=== PATIENT | male | born 1950 | race Caucasian/White ===

== ENCOUNTER 2018-01-29 11:05 | Emergency (ER) | END 2018-01-29 12:22 | disposition home or self-care (01) ==

== ENCOUNTER 2018-05-13 10:01 | Emergency (ER) | payer OTHER, MEDICAID ==
[~2018-05-13] VITALS: Ht 170.2 cm; Wt 109.7 kg
[~2018-05-13 10:01] MED LIST: CYCL10TA7 PO; DOCU-144 PO; HYDR-3498 PO
[2018-05-13 10:12] VITALS: BP 158/88; PULSE 78; RESP 18; Ht 170.2 cm; Wt 109.7 kg
[2018-05-13] MEDS ORDERED: ACETAMINOPHEN 325 MG TAB PO ONE (11:00)
[2018-05-13] MEDS ORDERED: ACET500C5 PO (12:46)
[2018-05-13] MEDS ORDERED: TRAM50TA2 PO (12:46)
--- NOTE | 2018-05-13 12:49 | ERD ---
ER Documentation Chief Complaint Chief Complaint RIGHT RIB AND SHOULDE PAIN X/P FALL 2WKS AGO HPI 68-year-old male tripped and fell 2 weeks ago. His right shoulder pain, low back pain, right knee pain. Is amatory. He had a facial contusion and has a bruise below his right eye but denies loss of consciousness, vomiting, visual changes, neck pain. ROS All systems reviewed and are negative except as per history of present illness. Medications Home Meds Active Scripts Tramadol HCl (Tramadol HCl) 50 Mg Tablet, 50 MG PO Q4 PRN for PAIN, #12 TAB Prov:SHAUNNA DEVI MD 05/13/18 Acetaminophen* (Tylophen*) 500 Mg Capsule, 1 CAP PO Q6H PRN for PAIN AND OR ELEVATED TEMP, #20 CAP Prov:SHAUNNA DEVI MD 05/13/18 Docusate Sodium* (Colace*) 100 Mg Capsule, 100 MG PO TID, #30 Prov:KALIA GASPAR DO 12/10/14 Cyclobenzaprine Hcl* (Cyclobenzaprine Hcl*) 10 Mg Tablet, 10 MG PO TID, #15 TAB Prov:KAILA GASPAR DO 12/10/14 Hydrocodone Bit-Acetaminophen* ([place]*) 5-325 Mg Tab, 1 TAB PO Q6 PRN for PAIN, #14 TAB Prov:KAILA GASPAR DO 12/10/14 Allergies Allergies: Coded Allergies: No Known Allergy (Verified Allergy, Unknown, 07/14/09) PMhx/Soc History of Surgery: No Anesthesia Reaction: No Hx Neurological Disorder: No Hx Respiratory Disorders: No Hx Cardiac Disorders: No Hx Psychiatric Problems: No Hx Miscellaneous Medical Probl: Yes (dm) Hx Alcohol Use: Yes Hx Substance Use: No Hx Tobacco Use: No FmHx Family History: No diabetes, No coronary disease, No other Physical Exam Vitals Vital Signs Date Temp Pulse Resp B/P (MAP) Pulse Ox O2 O2 Flow FiO2 Time Delivery Rate 05/13/18 98.0 78 18 158/88 96 10:12 (111) Physical Exam Const: No acute distress Head: Atraumatic Eyes: Normal Conjunctiva. Eyes Becki and extraocular movements intact. ENT: Normal External Ears, Nose and Mouth. Small bruise below the right eye without visual deformities, swelling, erythema. No deformities. Neck: Full range of motion. No meningismus. Resp: Clear to auscultation bilaterally Cardio: Regular rate and rhythm, no murmurs Abd: Soft, non tender, non distended. Normal bowel sounds Skin: No petechiae or rashes Back: No midline or flank tenderness Ext: No cyanosis, or edema. Tenderness in the right shoulder capsule without deformities, restricted range of motion weakness. Tenderness of the paraspinous lumbar area without midline tenderness or deformities. Mild tenderness over the right anterolateral knee joint without deformities, restricted range of motion weakness. No calf swelling or Homans sign. Neur: Awake and alert. Normal gait. No appreciable focal neurologic deficits. Psych: Normal Mood and Affect Results 24 hrs Current Medications Medications Dose Sig/Hao Start Time Status Last (Trade) Ordered Route PRN Stop Time Admin Dose Reason Admin 650 mg ONCE ONCE 05/13/18 DC 05/13/18 Acetaminophen PO 11:00 10:56 (Tylenol 05/13/18 11:01 Tab) Procedures/MDM X-ray right shoulder 3V Interpreted by me: Bones: No fracture Joints: No dislocation Foreign body: None impression-degenerative changes right AC joint. X-ray right knee 3V Interpreted by me: Bones: No fracture Joints: No dislocation Foreign body: None. Impression-degenerative changes of the suprapatellar area without fracture or dislocation. X-ray LS-Spine 3V Interpreted by me: Bones: No fracture, or lytic lesions Joints: No dislocation Foreign body: None. Impression-degenerative changes lumbar spine. Give Tylenol for pain. Patient presents with right shoulder pain, low back pain and right knee pain with after mechanical fall 2 weeks ago. He has no signs of fracture, dislocation, neurologic deficit, signs of head injury, neck injury. He is well-appearing. Will be treated with tramadol, Tylenol, primary care follow-up and return precautions. The patient was stable with no new complaints during the ER course. Clinically, there is no current evidence to suggest meningitis, sepsis, acute abdomen, pneumonia, stroke, acute coronary syndrome, pulmonary embolism, aortic dissection or any other emergent condition appearing to require further evaluation or hospitalization. Patient counseled regarding my diagnostic impression and care plan. Prior to discharge all questions answered. Pt agrees with treatment plan and understands strict return precautions. Pt is instructed to follow up with primary care provider within 24- 48 hours. Precautionary instructions provided including instructions to return to the ER if not improving or for any worsening or changing symptoms or concerns. Departure Diagnosis: Primary Impression: Sprain of shoulder, right Encounter type: initial encounter Shoulder sprain type: unspecified sprain Qualified Codes: S43.401A - Unspecified sprain of right shoulder joint, initial encounter Additional Impressions: Injury of back Encounter type: initial encounter Qualified Codes: S39.92XA - Unspecified injury of lower back, initial encounter Fall Encounter type: initial encounter Qualified Codes: W19.XXXA - Unspecified fall, initial encounter Knee contusion Encounter type: initial encounter Laterality: right Qualified Codes: S80.01XA - Contusion of right knee, initial encounter Condition: Stable Patient Instructions: Back Sprain/Strain, Fall, Mechanical, HEAD INJURY, No Wake-Up (Adult) Additional Instructions: Examines normal hoy. Cheque otro vez con [facility] doctor primario en el proximo steele or regresa para mas o nueva simptomas. SHAUNNA DEIV MD May 13, 2018 12:49
== END 2018-05-13 13:53 | disposition home or self-care (01) ==
LOC: FTE 10:01
DX: S43.401A Unspecified sprain of right shoulder joint, initial encounter (principal); S39.92XA Unspecified injury of lower back, initial encounter; S80.01XA Contusion of right knee, initial encounter; S00.83XA Contusion of other part of head, initial encounter; E11.9 Type 2 diabetes mellitus without complications; W01.0XXA Fall on same level from slipping, tripping and stumbling without subsequent striking against object, initial encounter; Y92.9 Unspecified place or not applicable
CPT/HCPCS: 72100; 73562